=== PATIENT | female | born 1960 | race Caucasian/White ===

== ENCOUNTER 2017-09-01 16:19 | Emergency (ER) | payer BC ==
[~2017-09-01] VITALS: Ht 165.1 cm; Wt 105.5 kg
[2017-09-01 16:59] LABS: HEMATOCRIT 43.9 % (36.0-46.0); HEMOGLOBIN 14.9 G/DL (11.9-15.5); MCH 29.8 PG (29.0-34.0); MCHC 33.9 G/DL (30.0-36.0); MCV 87.8 FL (83-99); PLATELET COUNT 319 K/uL (156-360); RBC DIS.WIDTH-CV 12.8 % (11.8-14.6); RBC DIS.WIDTH-SD 41.1 % (39-53); WHITE BLOOD COUNT 10.8 K/uL (4.1-10.2)
[2017-09-01 17:13] LABS: CHLORIDE 103 mEq/L (99-109); POTASSIUM 4.4 mEq/L (3.7-5.4); SODIUM 139 mEq/L (136-147)
[2017-09-01 17:14] LABS: GLUCOSE 131 mg/dL (70-99)
[2017-09-01 17:18] LABS: CREATININE 1.3 mg/dL (0.6-1.3)
[2017-09-01 17:19] LABS: UREA NITROGEN (BUN) 16 mg/dL (9-23)
[2017-09-01 17:20] LABS: GFR ESTIMATE (CALCULATED) 45 mL/min/
[2017-09-01 19:34] LABS: APPEARANCE CLEAR ((CLEAR)); BILIRUBIN NEGATIVE; BLOOD LARGE; COLOR STRAW ((YELLOW)); GLUCOSE (STRIP) NEGATIVE; KETONES NEGATIVE; LEUKOCYTES NEGATIVE; NITRITE NEGATIVE; PROTEIN (STRIP) NEGATIVE; SPECIFIC GRAVITY 1.006 (1.000-1.030); UROBILINOGEN 0.2 MG/DL (0.2-1.0)
[2017-09-01 19:41] LABS: BACTERIA RARE /HPF; EPITHELIAL CELLS RARE /HPF; MUCUS NONE SEEN /LPF; RED BLOOD CELLS 30-40 /HPF (0-5); UCUL ADDED? NO; WHITE BLOOD CELLS 0-5 /HPF (0-5)
[2017-09-01] MEDS ORDERED: TORADOL10 MG PO (20:05)
[2017-09-01 20:19] VITALS: BP 140/89
== END 2017-09-01 20:20 | disposition home or self-care (01) ==
LOC: EME 16:19
DX: N20.0 Calculus of kidney (principal); K59.00 Constipation, unspecified; Z90.49 Acquired absence of other specified parts of digestive tract; Z87.442 Personal history of urinary calculi
CPT/HCPCS: 74018; 80048; 81003; 85027; 99281; 99285; J1885; J2405; J3010; J7030